=== PATIENT | female | born 1975 ===

== ENCOUNTER 2018-04-25 19:20 | Emergency (ER) | payer MEDICAID, OTHER ==
[2018-04-25 19:21] VITALS: BMI 23.1
[2018-04-25 19:28] VITALS: TEMP 98.6
--- NOTE | 2018-04-25 20:04 | ED PDOC ---
HPI: Neurologic - General Time Seen by Provider: 04/25/18 19:29 Chief Complaint (Nursing): Weakness/Neurological Deficit Source: patient Exam Limitations: no limitations - History of Present Illness Timing/Duration: 24 hours Severity: mild Allergies/Adverse Reactions: Allergies No Known Allergies Allergy (Verified 04/25/18 19:24) Home Medications: Ambulatory Orders Albuterol 0.083% [Albuterol 0.083% Inhal Cinthya (2.5 mg/3 ml) UD] 3 ml IH Q6H PRN #30 neb 07/16/16 Albuterol HFA [Ventolin HFA 90 mcg/actuation (8 g)] 2 puff IH [id number] PRN #1 bottle 07/16/16 Azithromycin [Zithromax] 250 mg PO DAILY #4 tab 07/16/16 Nebulizer [Compact Compressor Nebulizer] 1 dev XX PRN PRN #1 dev 07/16/16 Prednisone 50 mg PO DAILY #4 tablet 07/16/16 Prednisone [Deltasone] 60 mg PO DAILY 6 Days tablet 04/25/18 Additional Complaint(s): Hx of asthma presenting with R sided facial numbness/weakness, states it started yesterday but thought it would go away spontaneously. Today she was eating and drinking and water was coming out of the R side of her mouth and her daughter told her that he face looked distorted on the R side. States her right eye has been "twitching" and that she is having some difficulty closing it fully. Denies headache, weakness of any extremity, vision changes, or any other sy mptoms. PMD: Dr. Dias ([place]) Past Medical History Reviewed: Historical Data, Nursing Documentation, Vital Signs Vital Signs: Last Vital Signs Temp 98.6 F 04/25/18 19:25 Pulse 88 04/25/18 19:25 Resp 18 04/25/18 19:25 BP 155/81 H 04/25/18 19:25 Pulse Ox 98 04/25/18 19:25 - Medical History PMH: Asthma - Family History Family History: States: Unknown Family Hx - Home Medications Home Medications: Ambulatory Orders Medication Instructions Recorded Albuterol 0.083% [Albuterol 0.083% 3 ml IH Q6H PRN #30 neb 07/16/16 Inhal Cinthya (2.5 mg/3 ml) UD] Albuterol HFA [Ventolin HFA 90 2 puff IH [id number] PRN #1 bottle 07/16/16 mcg/actuation (8 g)] Azithromycin [Zithromax] 250 mg PO DAILY #4 tab 07/16/16 Nebulizer [Compact Compressor 1 dev XX PRN PRN #1 dev 07/16/16 Nebulizer] Prednisone 50 mg PO DAILY #4 tablet 07/16/16 Prednisone [Deltasone] 60 mg PO DAILY 6 Days tablet 04/25/18 - Allergies Allergies/Adverse Reactions: Allergies Allergy/AdvReac Type Severity Reaction Status Date / Time No Known Allergies Allergy Verified 04/25/18 19:24 Review of Systems ROS Statement: Except As Marked, All Systems Reviewed And Found Negative Neurological: Positive for: Weakness (Facial) Physical Exam - Reviewed Nursing Documentation Reviewed: Yes Vital Signs Reviewed: Yes - Physical Exam Appears: Positive for: Well, Non-toxic, No Acute Distress Head Exam: Positive for: ATRAUMATIC, NORMAL INSPECTION, NORMOCEPHALIC Skin: Positive for: Normal Color, Warm, DRY Eye Exam: Positive for: EOMI, Normal appearance, PERRL ENT: Positive for: Normal ENT Inspection Neck: Positive for: Normal, Painless ROM Cardiovascular/Chest: Positive for: Regular Rate, Rhythm Respiratory: Positive for: CNT, Normal Breath Sounds Gastrointestinal/Abdominal: Positive for: Normal Exam, Soft Back: Positive for: Normal Inspection Extremity: Positive for: Normal ROM Neurologic/Psych: Positive for: Alert, Oriented, Facial Droop, Other (R sided eyebrow sagging, some inability to close R eye, drooping of R side of mouth, inability to raise R eyebrow or furrow forehead on R side, ). Negative for: Motor/Sensory Deficits - ECG O2 Sat by Pulse Oximetry: 98 Pulse Ox Interpretation: Normal Medical Decision Making Medical Decision Making: Patient presenting with ipsilateral facial weakness x 2 days --History and physical consistent with peripheral Velasquez's Palsy, not concerned for central pathology given unilateral forehead involvement --Will prescribe prednisone 60mg x 1 week --Ear exam negative, not concerned for zoster, otitis --Patient is very well appearing, laughing, fully mobile without any other neurological deficit Disposition - Clinical Impression Clinical Impression: Velasquez's palsy - Disposition Referrals: Wilfrido Reed MD [Medical Doctor] - Disposition: Routine/Home Disposition Time: 20:11 Condition: GOOD Additional Instructions: Please see Dr. Dias in 2 -3 days for a checkup. Prescriptions: Prednisone [Deltasone] 60 mg PO DAILY 6 Days tablet Instructions: Velasquez's Palsy (DC) Print Language: MALAGASY
[2018-04-25 22:19] VITALS: BP 142/64; PULSE 80; RESP 16; O2SAT 100
== END 2018-04-25 20:20 | disposition home or self-care (01) ==
LOC: H.ER 19:20
DX: G51.0 Bell's palsy (principal)